=== PATIENT | female | born 1975 | race African-American/Black ===

== ENCOUNTER 2017-05-21 11:35 | Emergency (ER) | payer OTHER ==
[~2017-05-21] VITALS: Ht 170.2 cm; Wt 81.6 kg
[~2017-05-21 11:35] MED LIST: GABAPENTIN300 MG ORAL
[2017-05-21 12:01] VITALS: BP 118/76
--- NOTE | 2017-05-21 12:01 | Emergency Room Report ---
History of Present Illness General Chief Complaint: Pain Source: EMS Present Illness HPI 42 yo female patient presents to ER BIB ambulance complaining of right hip pain x3 days. Reports pain has been present intermittently for the past 6 years since she hit her hip on her dresser. Patient denies new or recent injury. Patient reports chronic right knee pain. reports taking Gabapentin. Denies dysuria, hematuria, vaginal discharge, rash. Reports LMP normal. Reports subjective fever intermittently. Denies weight loss. Denies neck pain. Reports sexually active, uses condoms. Denies fever, nausea, vomiting, chest pain, SOB, abdominal pain. Denies radiation of pain symptoms. Denies back pain. Allergies: Coded Allergies: No Known Allergies (Unverified , 05/21/17) Patient History Past Medical History: see triage record Reviewed Nursing Documentation: PMH: Agreed; PSxH: Agreed Nursing Documentation-PMH Past Medical History: No History, Except For Review of Systems All Other Systems: negative except mentioned in HPI Physical Exam Vital Signs Date Time Temp Pulse Resp B/P (MAP) Pulse Ox O2 Delivery O2 Flow Rate FiO2 05/21/17 11:28 98.8 64 18 118/76 99 Room Air 98.8 Sp02 EP Interpretation: reviewed, normal General Appearance: well appearing, no apparent distress, alert, GCS 15, non- toxic Head: normocephalic, atraumatic Eyes: bilateral eye normal inspection, bilateral eye PERRL ENT: hearing grossly normal, normal pharynx, no angioedema, normal voice, uvula midline, moist mucus membranes Neck: full range of motion Respiratory: lungs clear, normal breath sounds, no rhonchi, no respiratory distress, no accessory muscle use, no wheezing, speaking full sentences Gastrointestinal: non tender, soft, no mass, non-distended, no guarding, no rebound Genitourinary: no CVA tenderness Musculoskeletal: back normal, digits/nails normal, gait/station normal, normal range of motion, no calf tenderness, pelvis stable, other - NVI, no ecchmosis, tender - right hip Neurologic: alert, oriented x3, responsive, motor strength/tone normal, SLR negative, sensory intact Psychiatric: mood/affect normal Skin: no rash Medical Decision Making PA Attestation Dr. Izquierdo is my supervising Physician whom patient management has been discussed with. Diagnostic Impression: Primary Impression: Urinary tract infection Additional Impression: Hip pain ER Course Pt. presents to the ED c/o right hip pain. Ddx considered but are not limited to fracture, sprain, strain, contusion, dislocation, UTI, infection. No erythema, no warmth to touch, no fever, nontoxic appearing, low suspicion for septic joint. No limb length discrepancy, low suspicion for dislocation. No abdominal pain, negative Newell sign, negative TTP at [place], negative Rovsing. Will order labs to rule out infection. Does not require CT abdomen/pelvis at this time. Vital signs: are WNL, pt. is afebrile Ordered X-ray and pain medication. ER COURSE Labs unremarkable, no WBC elevation, no LFT elevation UA shows positive WBC 5-10 and leukocyte esterase +3 with few epithelial, likely UTI, will treat with abx. Urine negative. Discussed results with patient. An X-ray of the right hip was ordered, results show no acute fracture, per the preliminary reading with Dr. Izquierdo. Results discussed with patient. Pain Medication provided in ED. Crutches not required, patient walking without difficulty. Needs outpatient followup due to chronicity of symptoms. Patient instructed on RICE method: rest, ice, compression, elevation. Patient instructed to WBAT. DISCHARGE: -Rx provided for Tylenol for pain symptoms. -Rx provided for Lidocaine patches -Rx provided for Keflex for UTI. Drink plenty of fluids At this time pt. is stable for d/c to home. Patient is resting comfortably, in no acute distress, nontoxic appearing, talking without difficulty. Will provide printed patient care instructions, and any necessary prescriptions. Patient instructed to follow with primary care provider in 3 - 5 days and to request further orthopedic, pain management, and/or physical therapy follow-up as needed. Care plan and follow up instructions have been discussed with the patient prior to discharge. Take medications as directed. Patient questions asked and answered. Patient reports understanding and agreement to treatment plan. ER precautions given, patient instructed to return to ER immediately for any new or worsening of symptoms. Labs Test 05/21/17 11:48 White Blood Count 7.3 K/UL (4.8-10.8) Red Blood Count 4.46 M/UL (4.20-5.40) Hemoglobin 11.2 G/DL (12.0-16.0) Hematocrit 36.3 % (37.0-47.0) Mean Corpuscular Volume 81 FL (80-99) Mean Corpuscular Hemoglobin 25.1 PG (27.0-31.0) Mean Corpuscular Hemoglobin Concent 30.9 G/DL (32.0-36.0) Red Cell Distribution Width 16.9 % (11.6-14.8) Platelet Count 303 K/UL (150-450) Mean Platelet Volume 6.8 FL (6.5-10.1) Neutrophils (%) (Auto) 68.6 % (45.0-75.0) Lymphocytes (%) (Auto) 21.7 % (20.0-45.0) Monocytes (%) (Auto) 6.1 % (1.0-10.0) Eosinophils (%) (Auto) 2.9 % (0.0-3.0) Basophils (%) (Auto) 0.7 % (0.0-2.0) Urine Color Pale yellow Urine Appearance Clear Urine pH 7 (4.5-8.0) Urine Specific [place] 1.010 (1.005-1.035) Urine Protein 1+ (NEGATIVE) Urine Glucose (UA) Negative (NEGATIVE) Urine Ketones Negative (NEGATIVE) Urine Occult Blood 1+ (NEGATIVE) Urine Nitrite Negative (NEGATIVE) Urine Bilirubin Negative (NEGATIVE) Urine Urobilinogen Normal MG/DL (0.0-1.0) Urine Leukocyte Esterase 3+ (NEGATIVE) Urine RBC 0-2 /HPF (0 - 2) Urine WBC 5-10 /HPF (0 - 2) Urine Squamous Epithelial Cells Few /LPF (NONE/OCC) Urine Bacteria Few /HPF (NONE) Urine HCG, Qualitative Negative (NEGATIVE) Sodium Level 140 MMOL/L (136-145) Potassium Level 3.6 MMOL/L (3.5-5.1) Chloride Level 104 MMOL/L (98-107) Carbon Dioxide Level 32 MMOL/L (21-32) Anion Gap 5 mmol/L (5-15) Blood Urea Nitrogen 6 mg/dL (7-18) Creatinine 0.9 MG/DL (0.55-1.30) Estimat Glomerular Filtration Rate > 60 mL/min (>60) Glucose Level 101 MG/DL (74-106) Calcium Level 8.9 MG/DL (8.5-10.1) Total Bilirubin 0.4 MG/DL (0.2-1.0) Aspartate Amino Transf (AST/SGOT) 20 U/L (15-37) Alanine Aminotransferase (ALT/SGPT) 29 U/L (12-78) Alkaline Phosphatase 86 U/L (46-116) Total Protein 7.9 G/DL (6.4-8.2) Albumin 4.0 G/DL (3.4-5.0) Globulin 3.9 g/dL Albumin/Globulin Ratio 1.0 (1.0-2.7) Other X-Ray Diagnostic Results Other X-Ray Diagnostic Results : X-Ray ordered: right hip # of Views/Limited Vs Complete: 2 View Indication: Pain EP Interpretation: Yes PA Xray: Interpretation reviewed, by supervising MD, and agrees with findings. Interpretation: no dislocation, no soft tissue swelling, no fractures Impression: No acute disease BENTLEY ScribSun Garcia PA-C Last Vital Signs Date Time Temp Pulse Resp B/P (MAP) Pulse Ox O2 Delivery O2 Flow Rate FiO2 05/21/17 11:28 98.8 64 18 118/76 99 Room Air 98.8 Disposition: HOME, SELF-CARE Condition: Stable Scripts Acetaminophen* (TYLENOL EXTRA STRENGTH*) 500 Mg Tablet 500 MG ORAL Q8H PRN for Prn Headache/Temp > 101, #30 TAB 0 Refills Prov: Manny Garcia 05/21/17 Lidocaine (Lidocaine) 1 Each Adh..patch 700 MG TP DAILY for 7 Days, #7 PATCH Prov: Manny Garcia 05/21/17 Cephalexin* (KEFLEX*) 500 Mg Capsule 500 MG ORAL EVERY 12 HOURS, #14 CAP 0 Refills Prov: Manny Garcia 05/21/17 Patient Instructions: Hip Pain, Urinary Tract Infection, [id number] Additional Instructions: Patient instructed to follow up with primary care provider in 3-5 days and discuss further referral to orthopedics and/or pain management as needed. Discuss need for physical therapy at that time. Patient instructed on RICE method: rest, ice, compression, elevation. Patient instructed to WBAT. Drink plenty of fluids. Take medications as directed. Patient questions asked and answered. ER precautions given, patient instructed to return to ER immediately for any new or worsening of symptoms. Manny Garcia May 21, 2017 12:01
[2017-05-21 12:05] LABS: APPEARANCE,URINE CLEAR; BASOPHILS % (AUTO) 0.7 % (0.0-2.0); BILIRUBIN, URINE NEGATIVE (NEGATIVE); COLOR,URINE PALE YELLOW; EOSINOPHILS % (AUTO) 2.9 % (0.0-3.0); GLUCOSE, URINE (UA) NEGATIVE (NEGATIVE); HEMATOCRIT 36.3 % (37.0-47.0); HEMOGLOBIN 11.2 G/DL (12.0-16.0); KETONES,URINE NEGATIVE (NEGATIVE); LEUKOCYTE ESTERASE ,URINE 3+ (NEGATIVE); LYMPHOCYTES % (AUTO) 21.7 % (20.0-45.0); MEAN CORPUSCULAR VOLUME 81 FL (80-99); MONOCYTES % (AUTO) 6.1 % (1.0-10.0); NEUTROPHILS % (AUTO) 68.6 % (45.0-75.0); NITRITE,URINE NEGATIVE (NEGATIVE); PH,URINE 7 (4.5-8.0); PLATELET COUNT 303 K/UL (150-450); PROTEIN,URINE 1+ (NEGATIVE); RED BLOOD COUNT 4.46 M/UL (4.20-5.40); RED CELL DISTRIBUTION WIDTH 16.9 % (11.6-14.8); UROBILINOGEN,URINE NORMAL MG/DL (0.0-1.0); WHITE BLOOD COUNT 7.3 K/UL (4.8-10.8)
[2017-05-21 12:14] LABS: ANION GAP 5 mmol/L (5-15); BLOOD UREA NITROGEN 6 mg/dL (7-18); CALCIUM 8.9 MG/DL (8.5-10.1); CARBON DIOXIDE 32 MMOL/L (21-32); CHLORIDE 104 MMOL/L (98-107); CREATININE 0.9 MG/DL (0.55-1.30); POTASSIUM 3.6 MMOL/L (3.5-5.1); SODIUM 140 MMOL/L (136-145)
[2017-05-21] MEDS ORDERED: Methocarbamol 500mg tab ORAL ONE (12:15)
[2017-05-21] MEDS ORDERED: Acetaminophen 500mg (ES) tab ORAL ONE (12:15)
[2017-05-21 12:19] LABS: ALANINE AMINOTRANSFERASE 29 U/L (12-78); ALKALINE PHOSPHATASE 86 U/L (46-116); ASPARTATE AMINO TRANSFERASE 20 U/L (15-37); BILIRUBIN,TOTAL 0.4 MG/DL (0.2-1.0)
[2017-05-21] MEDS ORDERED: CEPHALEXIN500 MG ORAL (12:53)
[2017-05-21] MEDS ORDERED: LIDOCAINE700 M1 TP (12:53)
[2017-05-21] MEDS ORDERED: TYLENOL EXTRA500 MG ORAL (12:53)
[2017-05-21 13:00] VITALS: BP 121/80
--- NOTE | 2017-05-21 14:01 | Diagnostic Imaging Report ---
Indications: hip pain Findings: Two views of the right hip were obtained. No acute fracture is demonstrated. Alignment of the hip is within normal limits. Soft tissues are unremarkable. Impression: Negative for acute injury.
== END 2017-05-21 13:00 | disposition home or self-care (01) ==
LOC: EDBD 11:35 → EMR 12:20
DX: M25.551 Pain in right hip (principal); N39.0 Urinary tract infection, site not specified
CPT/HCPCS: 36415; 80053; 81003; 81025; 85025; 99284

== ENCOUNTER 2017-08-05 10:38 | Emergency (ER) | payer OTHER ==
[~2017-08-05] VITALS: Ht 167.6 cm; Wt 77.1 kg
[~2017-08-05 10:38] MED LIST changes: +CEPHALEXIN500 MG ORAL; +LIDOCAINE700 M1 TP; +TYLENOL EXTRA500 MG ORAL
[2017-08-05 10:45] VITALS: BP 124/72
[2017-08-05] MEDS ORDERED: Bacitracin Oint UD TOPIC ONE (11:00)
[2017-08-05] MEDS ORDERED: oxyCODONE HCL/Acetaminophen 5/325mg ORAL ONE (11:00)
[2017-08-05] MEDS ORDERED: Lidocaine 1% 10mg/ml/Epi 0.005mg/ml 30ml vial INJ ONE (11:00)
[2017-08-05] MEDS ORDERED: LET 3ml Soln TOPIC ONE (11:00)
[2017-08-05 11:37] LABS: BILIRUBIN, URINE NEGATIVE (NEGATIVE); COLOR,URINE PALE YELLOW; GLUCOSE, URINE (UA) NEGATIVE (NEGATIVE); KETONES,URINE NEGATIVE (NEGATIVE); PROTEIN,URINE NEGATIVE (NEGATIVE); UROBILINOGEN,URINE NORMAL MG/DL (0.0-1.0)
[2017-08-05 11:47] LABS: APPEARANCE,URINE CLEAR
[2017-08-05 11:48] LABS: NITRITE,URINE POSITIVE (NEGATIVE)
[2017-08-05 11:49] LABS: LEUKOCYTE ESTERASE ,URINE 3+ (NEGATIVE)
--- NOTE | 2017-08-05 13:57 | Emergency Room Report ---
History of Present Illness General Chief Complaint: Female Urogenital Problems Source: Patient Present Illness HPI Patient presents with several days of increasing pain in perineal area. She shaves. No redness. She felt feverish several days ago but did not have pain in this area at that time. No dysuria. Menses is abnormal at this time. No change in bowels, though painful to sit. Pain rated 10/10 in area, not radiating. No rectal pain or vaginal discharge. No meds taken for the pain. No diabetes or other medical problems. No inflammatory bowel disease. 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 Reviewed Nursing Documentation: PMH: Agreed; PSxH: Agreed Review of Systems All Other Systems: negative except mentioned in HPI Physical Exam Vital Signs Date Time Temp Pulse Resp B/P (MAP) Pulse Ox O2 Delivery O2 Flow Rate FiO2 08/05/17 10:35 98.0 80 18 124/72 98 Room Air 98.1 Sp02 EP Interpretation: reviewed, normal General Appearance: well appearing, no apparent distress Head: normocephalic, atraumatic Eyes: bilateral eye normal inspection, bilateral eye PERRL ENT: hearing grossly normal, normal voice Neck: full range of motion, supple Respiratory: no respiratory distress, speaking full sentences Cardiovascular #1: regular rate, rhythm Cardiovascular #2: 2+ radial (R) Gastrointestinal: normal inspection, normal bowel sounds, non tender, soft Rectal: normal exam, other - induration not involve rectum Musculoskeletal: back normal, digits/nails normal, gait/station normal, normal range of motion Neurologic: alert, oriented x3, grossly normal Psychiatric: mood/affect normal Skin: other - area of induration posterior to labia and lateral to perineum ( more gluteal) with fluctuant center Procedures Incision and Drainage Incision and Drainage : Consent: Verbal Site: R perineal Blade Size: 11 I & D Procedure: betadine prep, sterile drapes applied, sterile dressing applied, gauze wick placed Wound Location: other - perineal Wound's Depth, Shape: superficial - into subcutaneous tissue Wound Length (cm): 1 Wound Explored: contaminated - pus obtained, 10 ml Irrigated w/ Saline (ccs): 20 Anesthesia: Lidocaine w/ Epi Volume Anesthetic (ccs): 5 Patient Tolerated: Well Complications: None Medical Decision Making Diagnostic Impression: Primary Impression: Perineal abscess ER Course Patient presents with pain in perineal area. DDx: perirectal abscess, perineal abscess, labial abscess, cellulitis. Based on exam, this is not confluent with rectum. I and D, antibiotics and analgesia indicated. I and D performed with improvement and good drainage. Wick inserted. Tolerate well. Improved with treatment. Discussed that will need to return for drain replacement. Patient stable for outpatient observation and treatment. Laboratory Tests Test 08/05/17 11:05 Urine Color Pale yellow Urine Appearance Clear Urine pH 7.0 (4.5-8.0) Urine Specific [place] 1.010 (1.005-1.035) Urine Protein Negative (NEGATIVE) Urine Glucose (UA) Negative (NEGATIVE) Urine Ketones Negative (NEGATIVE) Urine Occult Blood 2+ (NEGATIVE) H Urine Nitrite Positive (NEGATIVE) H Urine Bilirubin Negative (NEGATIVE) Urine Urobilinogen Normal MG/DL (0.0-1.0) Urine Leukocyte Esterase 3+ (NEGATIVE) H Urine RBC 5-10 /HPF (0 - 2) H Urine WBC Tntc /HPF (0 - 2) H Urine Squamous Epithelial Cells Many /LPF (NONE/OCC) H Urine Bacteria Moderate /HPF (NONE) H Urine HCG, Qualitative Negative (NEGATIVE) Last Vital Signs Date Time Temp Pulse Resp B/P (MAP) Pulse Ox O2 Delivery O2 Flow Rate FiO2 08/05/17 14:18 98.1 18 124/72 98 Room Air 98.1 08/05/17 10:35 80 Status: improved Disposition: HOME, SELF-CARE Condition: Improved Scripts Ibuprofen* (MOTRIN*) 600 Mg Tablet 600 MG ORAL Q6H PRN for For Pain, #20 TAB Prov: Connor Bergeron M.D. 08/05/17 Hydrocodone Bit/Acetaminophen 5-325* (NORCO 5-325*) 1 Each Tablet 1 TAB ORAL Q6H PRN for For Pain, #10 TAB 0 Refills Prov: Connor Bergeron M.D. 08/05/17 Cephalexin* (KEFLEX*) 500 Mg Capsule 500 MG ORAL EVERY 6 HOURS, #28 CAP Prov: Connor Bergeron M.D. 08/05/17 Trimethoprim/Sulfamethoxazole 160/800* (BACTRIM DS TABLET*) 1 Each Tablet 1 TAB ORAL Q12H, #14 TAB 0 Refills Prov: Connor Bergeron M.D. 08/05/17 Referrals: SHIRA DAMON,REFERRING (PCP) Connor Bergeron M.D. Aug 05, 2017 13:57
[2017-08-05] MEDS ORDERED: Cephalexin 500mg cap ORAL ONE (14:00)
[2017-08-05] MEDS ORDERED: Bactrim-DS 1 tab ORAL ONE (14:00)
[2017-08-05] MEDS ORDERED: BACTRIM DS TAB1 EAC1 ORAL (14:02)
[2017-08-05] MEDS ORDERED: IBUPROFEN600 MG ORAL (14:02)
[2017-08-05] MEDS ORDERED: NORCO 5-325 TA1 EACH ORAL (14:02)
[2017-08-05] MEDS ORDERED: CEPHALEXIN500 MG ORAL (14:02)
[2017-08-05 14:18] VITALS: BP 124/72
== END 2017-08-05 14:18 | disposition home or self-care (01) ==
LOC: EDBD 10:38 → EMR 11:04
DX: L02.215 Cutaneous abscess of perineum (principal)
CPT/HCPCS: 10060; 81003; 81025; 87086; 87181; 99284

== ENCOUNTER 2018-01-29 20:09 | Emergency (ER) | payer OTHER ==
[~2018-01-29] VITALS: Ht 172.7 cm; Wt 72.6 kg
[2018-01-29 20:09] VITALS: BP 104/67
[~2018-01-29 20:09] MED LIST changes: +BACTRIM DS TAB1 EAC1 ORAL; +IBUPROFEN600 MG ORAL; +NORCO 5-325 TA1 EACH ORAL
[2018-01-29] MEDS ORDERED: Lidocaine 1% 10mg/ml/Epi 0.005mg/ml 30ml vial INJ ONE (20:30)
[2018-01-29] MEDS ORDERED: Norco 5mg/325mg tab ORAL ONE (20:30)
[2018-01-29] MEDS ORDERED: Cephalexin 500mg cap ORAL ONE (21:15)
[2018-01-29] MEDS ORDERED: Bactrim-DS 1 tab ORAL ONE (21:15)
[2018-01-29] MEDS ORDERED: CEPHALEXIN500 MG ORAL (21:28)
[2018-01-29] MEDS ORDERED: NORCO 5-325 TA1 EACH ORAL (21:28)
[2018-01-29] MEDS ORDERED: BACTRIM DS TAB1 EAC1 ORAL (21:28)
[2018-01-29 21:47] VITALS: BP 106/69
--- NOTE | 2018-01-30 15:49 | Emergency Room Report ---
History of Present Illness General Chief Complaint: Female Urogenital Problems Source: Patient Present Illness HPI 43-year-old female presents ED for evaluation. Brought in by EMS. From home. Complaining of genital pain. States that she has an abscess down there. Noticed it yesterday. Throbbing, 10 out of 10, nonradiating. Denies any fevers or chills. Denies any discharge. States she had a similar abscess previously which was drained and she took antibiotics. States that that abscess resolved completely. No other aggravating relieving factors. Denies any other associated symptoms Allergies: Coded Allergies: No Known Allergies (Unverified , 05/21/17) Patient History Past Medical History: none Past Surgical History: none Pertinent Family History: none Social History: Denies: smoking, alcohol use, drug use Now: No Immunizations: UTD Reviewed Nursing Documentation: PMH: Agreed; PSxH: Agreed Nursing Documentation-PMH Past Medical History: No Stated History Review of Systems All Other Systems: negative except mentioned in HPI Physical Exam Vital Signs Date Time Temp Pulse Resp B/P (MAP) Pulse Ox O2 Delivery O2 Flow Rate FiO2 01/29/18 20:02 99.0 80 16 88/53 99 Room Air Sp02 EP Interpretation: reviewed, normal General Appearance: no apparent distress, alert, GCS 15, non-toxic Head: normocephalic Eyes: bilateral eye normal inspection, bilateral eye PERRL ENT: normal ENT inspection Neck: normal inspection Respiratory: chest non-tender Cardiovascular #1: normal inspection Gastrointestinal: normal inspection Rectal: deferred Genitourinary: no CVA tenderness, other - content coordinator present. bartholin gland swelling/cyst 7 o clock position. Musculoskeletal: back normal, gait/station normal, normal range of motion, non- tender Neurologic: alert, oriented x3, responsive, motor strength/tone normal, sensory intact, speech normal Psychiatric: normal inspection Skin: normal inspection Lymphatic: normal inspection Procedures Laceration/Wound Repair Laceration/Wound Repair : Wound Explored: Incision and Drainage Incision and Drainage : Consent: Verbal Blade Size: 11 I & D Procedure: betadine prep, sterile drapes applied, gauze wick placed Wound Location: pelvis - bartholin gland Wound Explored: purulent/bloody dischage Anesthesia: 1% Lidocaine Splint Applied?: No Sling Applied?: No Patient Tolerated: Well Complications: None Medical Decision Making Diagnostic Impression: Primary Impression: Bartholin gland cyst ER Course Hospital Course 43 yo F presents ED c/o swelling to pelvic area Clinical course Patient placed on stretcher. After initial history, exam reveals female in no acute distress. [employer] Ambassador present. On exam there is a swelling to the Bartholin gland fluctuance at the 7 o'clock position. No discharge. discussed findings with patient. will require I&D. I&D performed. Some purulent but mostly bloody discharge noted. Patient tolerated procedure without complication. Packing placed. She was initially hypotensive as per triage. Patient felt fine. No dizziness or weakness. On reassessment blood pressure was normal. I see no reason to check labs or place IV access. Patient given Bactrim and Keflex here. Will discharge with antibiotics. Instructed to return here or to see [facility] TE[facility] for packing removal Diagnosis - bartholin gland cyst Stable and discharged to home with prescription for norco, bactrim, Keflex. wound Care instructions given. Followup with OBGYN/ED for packing removal in 2- 3 days. Return to ED if any signs of infection develop Last Vital Signs Date Time Temp Pulse Resp B/P (MAP) Pulse Ox O2 Delivery O2 Flow Rate FiO2 01/29/18 21:47 98.6 87 17 106/69 100 Room Air Status: improved Disposition: HOME, SELF-CARE Condition: Stable Scripts Hydrocodone Bit/Acetaminophen 5-325* (NORCO 5-325*) 1 Each Tablet 1 TAB ORAL Q6H PRN for For Pain, #10 TAB 0 Refills Prov: Mazin Vences MD 01/29/18 Trimethoprim/Sulfamethoxazole 160/800* (BACTRIM DS TABLET*) 1 Each Tablet 1 TAB ORAL Q12H, #14 TAB 0 Refills Prov: Mazin Vences MD 01/29/18 Cephalexin* (KEFLEX*) 500 Mg Capsule 500 MG ORAL EVERY 6 HOURS for 7 Days, CAP Prov: Mazin Vences MD 01/29/18 Patient Instructions: Bartholin Cyst or Abscess, [id number] Additional Instructions: have packing removed in ED or by PMD in 2-3 days Mazin Vences MD Jan 30, 2018 15:49
[2018-02-01] MEDS ORDERED: HYDROCODON-ACE1 EA15 ORAL (06:11)
== END 2018-01-29 21:48 | disposition home or self-care (01) ==
LOC: EDBD 20:09 → EMR 20:21
DX: N75.0 Cyst of Bartholin's gland (principal)
CPT/HCPCS: 56420; 99283; Z7502; 10060

== ENCOUNTER 2018-03-20 20:21 | Emergency (ER) | payer OTHER ==
[~2018-03-20] VITALS: Ht 172.7 cm; Wt 72.6 kg
[~2018-03-20 20:21] MED LIST changes: +HYDROCODON-ACE1 EA15 ORAL
[2018-03-20 20:23] VITALS: BP 120/82
--- NOTE | 2018-03-20 20:23 | NUR ---
ED Nurse Note: VEENA SANTILLAN RA [id number] from home c/o vaginal swelling x 1 week
[2018-03-20] MEDS ORDERED: Norco 5mg/325mg tab ORAL ONE (20:45)
[2018-03-20] MEDS ORDERED: Lidocaine 1% Plain 30 ml INJ ONE (20:45)
[2018-03-20] MEDS ORDERED: LET 3ml Soln TOPIC ONE (21:00)
--- NOTE | 2018-03-20 21:05 | Emergency Room Report ---
History of Present Illness General Chief Complaint: Female Urogenital Problems Source: Patient Present Illness HPI 43-year-old female presents to the emergency department complaining of 8 out of 10 in severity progressive painful/tender, swelling and erythema to the lower portion of the right labia 4 days. Patient reports recurrent Bartholin' s gland abscess. Patient denies fevers or chills she states that she has been trying hot sitz baths with no relief. Patient denies swollen tender lymph nodes or external vaginal lesions. Patient denies any relieving factors and states palpation or walking aggravates her symptoms. Pt. also reports pain, numbness intermittently to the right wrist. pt. 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 Denies trauma or fall. Allergies: Coded Allergies: No Known Allergies (Unverified , 05/21/17) Patient History Past Medical History: see triage record Past Surgical History: none Pertinent Family History: none Last Menstrual Period: 12/2017 Now: No Reviewed Nursing Documentation: PMH: Agreed; PSxH: Agreed Nursing Documentation-PMH Past Medical History: No Stated History Review of Systems All Other Systems: negative except mentioned in HPI Physical Exam Vital Signs Date Time Temp Pulse Resp B/P (MAP) Pulse Ox O2 Delivery O2 Flow Rate FiO2 03/20/18 20:15 98.1 91 16 112/70 100 Room Air Sp02 EP Interpretation: reviewed, normal General Appearance: alert, GCS 15, non-toxic, mild distress Head: normocephalic, atraumatic Eyes: bilateral eye normal inspection, bilateral eye PERRL ENT: hearing grossly normal, normal voice Neck: full range of motion Respiratory: chest non-tender, lungs clear, normal breath sounds, speaking full sentences Cardiovascular #1: regular rate, rhythm Genitourinary: no CVA tenderness, other - swelling, erythema and tenderness with palpable induration to the lower portion of the right labia. Musculoskeletal: back normal, gait/station normal, normal range of motion, non- tender, other - Positive tinnels and phalens testing Neurologic: alert, oriented x3, responsive, motor strength/tone normal, sensory intact, speech normal, grossly normal Psychiatric: judgement/insight normal Skin: normal color, no rash, warm/dry, well hydrated, other - Swelling , erythema, warmth and tenderness to the lower right labia. Lymphatic: no adenopathy Procedures Incision and Drainage Incision and Drainage : Consent: Verbal Site: right lower vaginal labia Blade Size: 11 I & D Procedure: betadine prep, sterile drapes applied, sterile dressing applied, gauze wick placed Wound Location: other - right vaginal labia Wound's Depth, Shape: linear Wound Length (cm): 1 Wound Explored: contaminated - also contained clots. Anesthesia: 1% Lidocaine Volume Anesthetic (ccs): 4 Splint Applied?: No Patient Tolerated: Well - pt. did not tolerate word catheter so packing was placed instead. Complications: None Medical Decision Making PA Attestation Dr. Voss is my supervising Physician whom patient management has been discussed with. Diagnostic Impression: Primary Impression: Bartholin gland cyst Additional Impressions: Abscess Carpal tunnel syndrome of right wrist ER Course Pt. presents to the ED c/o pain, swelling, and erythema of vaginal labia. pt. with hx of bartholin's abscess requiring I & D 3x prior. Ddx considered but are not limited to cellulitis, abscess, cystic acne, necrotizing fasciitis, insect bite. Vital signs: are WNL, pt. is afebrile H&PE are most consistent with Bartholin gland abscess and carpal tunnel syndrome of the right wrist ORDERS: none required at this time, the diagnosis is clinical ED INTERVENTIONS: -LET application topically for topical anesthesia -I & D. - Right wrist Splint applied by broadcast technician. Pt. remains neurovascularly intact. DISCHARGE: At this time pt. is stable for d/c to home. Will provide printed patient care instructions, and any necessary prescriptions. Care plan and follow up instructions have been discussed with the patient prior to discharge. Last Vital Signs Date Time Temp Pulse Resp B/P (MAP) Pulse Ox O2 Delivery O2 Flow Rate FiO2 03/20/18 20:15 98.1 91 16 112/70 100 Room Air Disposition: HOME, SELF-CARE Condition: Stable Scripts Trimethoprim/Sulfamethoxazole 160/800* (BACTRIM DS TABLET*) 1 Each Tablet 1 TAB ORAL TWICE A DAY for 7 Days, #14 TAB Prov: Yodit Jacobs 03/20/18 Hydrocodone Bit/Acetaminophen 5-325* (NORCO 5-325*) 1 Each Tablet 1 TAB ORAL Q6H PRN for For Pain, #20 TAB 0 Refills Prov: Yodit Jacobs 03/20/18 Patient Instructions: Bartholin Cyst or Abscess, [id number] Additional Instructions: Take medications as directed. Follow up with a GEOSPATIAL ENGINEER within 3 days, even if your symptoms have resolved. * * Return sooner to ED if new symptoms occur, or current symptoms become worse. - Please note that this Emergency Department Report was dictated using [employer] advocate technology software, occasionally this can lead to erroneous entry secondary to interpretation by the dictation equipment. Yodit Jacobs Mar 20, 2018 21:05
[2018-03-20] MEDS ORDERED: NORCO 5-325 TA1 EACH ORAL (22:31)
[2018-03-20] MEDS ORDERED: BACTRIM DS TAB1 EAC1 ORAL (22:31)
[2018-03-20 22:50] VITALS: BP 122/80
--- NOTE | 2018-03-20 22:50 | NUR ---
ED Nurse Note: Pt cleared DC by BENTLEY Monsivais. Pt is A/Ox4, VSS, DC instruction and prescriptions given, pt verbalized understanding. ID wristband removed. All belongings given to pt. Pt ambulated out of ER with steady gait.
== END 2018-03-20 22:50 | disposition home or self-care (01) ==
LOC: EDBD 20:21 → EMR 22:00
DX: N75.0 Cyst of Bartholin's gland (principal); N76.4 Abscess of vulva; G56.01 Carpal tunnel syndrome, right upper limb
CPT/HCPCS: 56420; 99282; J2001; Z7502